=== PATIENT | female | born 1965 | race Caucasian/White ===

== ENCOUNTER 2019-10-05 11:00 | Outpatient (CLI) | payer OTHER ==
--- NOTE | 2019-10-05 11:43 | BD ---
EXAM: DEXA bone density examination HISTORY: 54-year-old female for screening COMPARISON: None FINDINGS: L1--bone mineral density 1.053 g/sq cm; T score 0.6 L2--bone mineral density 1.091 g/sq cm; T score 0.6 L3--bone mineral density 1.026 g/sq cm; T score -0.5 L4--bone mineral density 0.975 g/sq cm; T score -0.8 Total L1-L4--bone mineral density 1.030 g/sq cm; T score -0.2 Left femoral neck--bone mineral density0.701; T score -1.3 Total proximal left femur--bone mineral density 0.874; T score -0.6 WHO classification: Osteopenia 10 year fracture risk Major osteoporotic fracture: 7.4% Hip fracture: 0.8% IMPRESSION: Osteopenia with fracture risk as above.
--- NOTE | 2019-10-05 11:55 | RAD ---
TWO VIEWS CHEST: DATE: 10/05/2019. PROVIDED CLINICAL HISTORY: Rheumatoid arthritis. FINDINGS: No comparisons. Cardiac and mediastinal silhouette is within normal limits. Vascular calcification is noted involvin g the aortic arch. No focal consolidation, pleural fluid, or pneumothorax apparent. IMPRESSION: No evidence for an acute cardiopulmonary process. POS: [facility]
== END 2019-10-05 11:01 | disposition home or self-care (01) ==
LOC: BICMAMMO 11:00
PROVIDERS: ATTEND Internal Medicine Rheumatology
DX: M81.0 Age-related osteoporosis without current pathological fracture (principal); M05.79 Rheumatoid arthritis with rheumatoid factor of multiple sites without organ or systems involvement; M85.852 Other specified disorders of bone density and structure, left thigh
CPT/HCPCS: 71046; 77080

== ENCOUNTER 2020-06-12 14:00 | Inpatient (IN) | payer OTHER | END 2020-06-24 07:00 | disposition home or self-care (01) | DRG 470 | LOC: SJJU 06-24 07:00 | PROVIDERS: ADMIT Orthopaedic Surgery; ATTEND Orthopaedic Surgery | PROC: 0SRC0J9 Replacement of Right Knee Joint with Synthetic Substitute, Cemented, Open Approach (ICD-10-PCS; principal; 2020-06-24) | PROC: 8E0YXBZ Computer Assisted Procedure of Lower Extremity (ICD-10-PCS; 2020-06-24) | DX: M17.11 Unilateral primary osteoarthritis, right knee (principal); Z20.822 Contact with and (suspected) exposure to COVID-19; I10 Essential (primary) hypertension; F10.10 Alcohol abuse, uncomplicated; F32.9 Major depressive disorder, single episode, unspecified; G89.29 Other chronic pain; F17.210 Nicotine dependence, cigarettes, uncomplicated; Z79.899 Other long term (current) drug therapy ==

== ENCOUNTER 2020-06-19 14:39 | Outpatient (CLI) | payer OTHER ==
[2020-06-19 16:14] LABS: Bilirubin Neg (Negative); Blood, Urine Negative (Negative); Clarity Slightly Cloudy (Clear); Glucose, Urine (Dipstick) Normal (Negative); Ketone, Urine Negative (Negative); Leukocyte 25 (Negative); Nitrite Negative (Negative); Protein, Urine (Dipstick) Negative (Neg-Trace); Specific Gravity, Urine 1.015 (1.002-1.036); Urobilinogen Normal mg/dL (Less than 2)
[2020-06-19 16:32] LABS: INR-International Normal Ratio 0.9
[2020-06-19 16:35] LABS: Anion Gap 15 mmol/L (10-20); BUN (Urea Nitrogen) 21 mg/dL (9.8-20.1); Chloride 103 mmol/L (98-107); Potassium 4.2 mmol/L (3.5-5.1); Sodium 140 mmol/L (136-145)
[2020-06-19 16:47] LABS: #Eosinphils 0.1 10x3/uL (0.0-0.5); #Monocytes 0.4 10x3/uL (0.0-1.1); #Neutrophils 5.2 10x3/uL (1.5-8.4); %Basophils 0.4 % (0.0-2.0); %Eosinophils 0.8 % (0.0-6.0); %Lymphocytes 21.1 % (18.0-47.0); %Neutrophils 72.3 % (40.0-75.0); Hemoglobin 13.4 g/dL (12.0-15.5); Mean Corpuscular HGB CONC 32.8 g/dL (32.0-36.0); Mean Corpuscular Hemoglobin 28.7 pg (27.0-33.0); Mean Corpuscular Volume 87.6 fl (81.6-98.3); Mean Platelet Volume 10.5 fl (7.4-10.4); Platelet Count 356 10x3/uL (150-450); RBC Distribution Width 14.4 % (11.5-14.5); Red Blood Cell (RBC) Count 4.67 10x6/uL (3.90-5.03); White Blood Cell (WBC) Count 7.1 10x3/uL (3.5-10.5)
[2020-06-19 17:27] LABS: Calc. Creatinine Clearance 0 mL/min (70-130); Calcium 9.3 mg/dL (7.8-10.44); Carbon Dioxide 26 mmol/L (22-29); Glucose 98 mg/dL (70-105)
[2020-06-19 18:31] LABS: RBC/HPF 0-3 HPF (0-3)
[2020-06-19 18:32] LABS: Bacteria/HPF 3+ HPF (None Seen)
[2020-06-19 18:34] LABS: Transitional Epithelial 0-3 HPF (None Seen)
[2020-06-20 01:16] LABS: SARS-CoV-2 PCR by NAA Not Detected (NotDetected)
== END 2020-06-19 14:40 | disposition home or self-care (01) ==
LOC: LABBT 14:39
PROVIDERS: ATTEND Orthopaedic Surgery
DX: Z01.818 Encounter for other preprocedural examination (principal); Z20.822 Contact with and (suspected) exposure to COVID-19; M17.11 Unilateral primary osteoarthritis, right knee
CPT/HCPCS: 80048; 81001; 85025; 85610; 87081; 87635; 93005; 93010; U0003; U0005

== ENCOUNTER 2020-06-26 10:00 | Inpatient (IN) | payer OTHER ==
[2020-07-01] MEDS ORDERED: Sodium Chloride 0.9% 100 ML ONE (09:21)
[2020-07-01] MEDS ORDERED: Tranexamic Acid 1,000 MG/10 ML VIAL ONE (09:21)
[2020-07-01] MEDS ORDERED: Vancomycin HCl 1.5 GM in Sodium Chloride 0.9% 250 ML 300 ML IVPB SCH (09:30)
[2020-07-01] MEDS ORDERED: Famotidine/PF 20 mg/2ml Vial ONE (09:43)
[2020-07-01] MEDS ORDERED: Midazolam HCl 2 mg/2 ml Vial ONE (09:43)
[2020-07-01] MEDS ORDERED: Fentanyl 100 MCG/2 ML VIAL ONE ×6 (09:43→13:01)
[2020-07-01] MEDS ORDERED: Ketorolac Tromethamine 30 MG/ML VIAL ONE (10:40)
[2020-07-01] MEDS ORDERED: Ondansetron PF 4 MG/2 ML Vial ONE (10:40)
[2020-07-01] MEDS ORDERED: PROPOFOL 200 MG/20 ML VIAL ONE (10:40)
[2020-07-01] MEDS ORDERED: Ropivacaine 2% HCl/PF (20 MG/10 ML VIAL) ONE (10:40)
[2020-07-01] MEDS ORDERED: Lidocaine 1% PF 5 ML VIAL ONE (10:40)
[2020-07-01] MEDS ORDERED: Ropivacaine 0.5% HCl/PF (150 MG/30 ML VIAL) ONE (10:40)
[2020-07-01] MEDS ORDERED: Dexamethasone 20 MG/5 ML VIAL ONE (10:40)
[2020-07-01] MEDS ORDERED: HYDROcodone/Acetaminophen 10/325 mg Tablet PO PRN ×3 (10:51→12:15)
[2020-07-01] MEDS ORDERED: Zolpidem Tartrate 5 MG TAB PO PRN ×2 (10:51→12:15)
[2020-07-01] MEDS ORDERED: Ondansetron PF 4 MG/2 ML Vial IVP PRN ×2 (10:51→12:15)
[2020-07-01] MEDS ORDERED: diphenhydrAMINE 25 MG CAP PO PRN (10:51)
[2020-07-01] MEDS ORDERED: Acetaminophen 325 MG TAB PO PRN (10:51)
[2020-07-01] MEDS ORDERED: Promethazine HCl 25 MG/ML VIAL IM PRN ×3 (10:51→12:15)
[2020-07-01] MEDS ORDERED: Meperidine HCl/PF 25 MG/ML VIAL SLOW IVP PRN (11:56)
[2020-07-01] MEDS ORDERED: HYDROmorphone 2 MG/ML VIAL SLOW IVP PRN (11:56)
[2020-07-01] MEDS ORDERED: Promethazine HCl 25 MG/ML VIAL SLOW IVP PRN (11:56)
[2020-07-01] MEDS ORDERED: traMADol HCl 50 MG TAB PO PRN (12:15)
[2020-07-01] MEDS ORDERED: Ropivacaine HCl/PF 250 ML in Premix Bag 1 BAG NERVE BLCK SCH (12:15)
[2020-07-01] MEDS ORDERED: hydrALAZINE 20 MG/ML VIAL ONE (13:01)
[2020-07-01] MEDS ORDERED: Ketorolac Tromethamine 30 MG/ML VIAL IVP SCH (14:00)
[2020-07-01] MEDS: Fentanyl 100 MCG/2 ML VIAL IV PRN ×2 (14:27→18:47)
[2020-07-01] MEDS: Sodium Chloride 0.9% 1,000 ML IV SCH ×2 (14:42→21:10)
[2020-07-01] MEDS: HYDROcodone/Acetaminophen 10/325 mg Tablet PO PRN ×2 (15:49→21:07)
[2020-07-01 15:51] VITALS: BMI 41.5
[2020-07-01] MEDS ORDERED: Amlodipine 5 MG TAB PO SCH (18:00)
[2020-07-01] MEDS: CEFAZOLIN 2 GM in Premix Bag 1 BAG IVPB SCH (18:43)
[2020-07-01] MEDS: Aspirin 81 mg Enteric Coated Tablet PO SCH (21:08)
[2020-07-01] MEDS: Senokot S 8.6-50 MG TAB PO SCH (21:08)
[2020-07-01] MEDS: Ferrous Gluconate 324 MG TAB PO SCH (21:08)
[2020-07-02] MEDS: CEFAZOLIN 2 GM in Premix Bag 1 BAG IVPB SCH (02:20)
[2020-07-02] MEDS: Sodium Chloride 0.9% 1,000 ML IV SCH ×2 (02:23→17:59)
[2020-07-02] MEDS: HYDROcodone/Acetaminophen 10/325 mg Tablet PO PRN ×5 (02:23→22:18)
[2020-07-02 06:23] LABS: Hemoglobin 11.6 g/dL (12.0-16.0); Mean Corpuscular HGB CONC 33.8 g/dL (32.0-36.0); Mean Corpuscular Hemoglobin 30.2 pg (27.0-31.0); Mean Corpuscular Volume 89.2 fL (78.0-98.0); Mean Platelet Volume 8.1 fL (7.4-10.4); Platelet Count 321 thou/uL (130-400); Red Blood Cell (RBC) Count 3.85 mill/uL (4.20-5.40); White Blood Cell (WBC) Count 12.9 thou/uL (4.8-10.8)
[2020-07-02] MEDS: Aspirin 81 mg Enteric Coated Tablet PO SCH ×2 (08:27→20:35)
[2020-07-02] MEDS: Hydrochlorothiazide 25 MG TAB PO SCH (08:28)
[2020-07-02] MEDS: Ferrous Gluconate 324 MG TAB PO SCH ×2 (08:28→20:35)
[2020-07-02] MEDS: predniSONE 5 MG TAB PO SCH (08:28)
[2020-07-02] MEDS: Amlodipine 5 MG TAB PO SCH (08:28)
[2020-07-02] MEDS: Multivitamin W/ Minerals 1 TAB PO SCH (08:28)
[2020-07-02] MEDS: Fentanyl 100 MCG/2 ML VIAL IV PRN ×2 (08:35→12:26)
[2020-07-02] MEDS ORDERED: Gabapentin 100 MG CAP PO PRN (09:00)
[2020-07-02] MEDS: Senokot S 8.6-50 MG TAB PO SCH ×2 (15:35→20:36)
[2020-07-02] MEDS: traMADol HCl 50 MG TAB PO PRN (20:33)
[2020-07-02] MEDS: Ketorolac Tromethamine 30 MG/ML VIAL IVP PRN (22:22)
[2020-07-03] MEDS: Sodium Chloride 0.9% 1,000 ML IV SCH ×2 (03:14→13:20)
[2020-07-03] MEDS: HYDROcodone/Acetaminophen 10/325 mg Tablet PO PRN ×3 (03:33→14:04)
[2020-07-03] MEDS: Ketorolac Tromethamine 30 MG/ML VIAL IVP PRN (06:08)
[2020-07-03] MEDS: traMADol HCl 50 MG TAB PO PRN (06:09)
[2020-07-03 08:11] VITALS: TEMP 98.1
[2020-07-03] MEDS: Ferrous Gluconate 324 MG TAB PO SCH (08:38)
[2020-07-03] MEDS: Senokot S 8.6-50 MG TAB PO SCH (08:39)
[2020-07-03] MEDS: predniSONE 5 MG TAB PO SCH (08:39)
[2020-07-03] MEDS: Amlodipine 5 MG TAB PO SCH (08:39)
[2020-07-03] MEDS: Aspirin 81 mg Enteric Coated Tablet PO SCH (08:39)
[2020-07-03] MEDS: Hydrochlorothiazide 25 MG TAB PO SCH (08:39)
[2020-07-03] MEDS: Multivitamin W/ Minerals 1 TAB PO SCH (08:40)
[2020-07-03 12:02] VITALS: BP 126/77
== END 2020-07-03 14:30 | disposition home or self-care (01) | DRG 470 ==
LOC: SURG A 07-01 08:53 → EDSTATUS 07-01 10:00 → SURG A 07-01 13:40
PROVIDERS: ADMIT Orthopaedic Surgery; ATTEND Orthopaedic Surgery
PROC: 0SRC0J9 Replacement of Right Knee Joint with Synthetic Substitute, Cemented, Open Approach (ICD-10-PCS; principal; 2020-07-01)
DX: M17.11 Unilateral primary osteoarthritis, right knee (principal); M06.9 Rheumatoid arthritis, unspecified; I10 Essential (primary) hypertension; F32.9 Major depressive disorder, single episode, unspecified; G89.29 Other chronic pain; F10.11 Alcohol abuse, in remission; F14.11 Cocaine abuse, in remission; F17.210 Nicotine dependence, cigarettes, uncomplicated; Z20.822 Contact with and (suspected) exposure to COVID-19
CPT/HCPCS: 36415; 85027; C1713; C1776; J0360; J0690; J1100; J1885; J2250; J2405; J2704; J2795; J3010; J3490; J7512; S0028

== ENCOUNTER 2020-06-26 10:37 | Outpatient (CLI) | payer OTHER ==
[2020-06-26 20:37] LABS: SARS-CoV-2 PCR by NAA Not Detected (NotDetected)
== END 2020-06-26 10:38 | disposition home or self-care (01) ==
LOC: LABBT 10:37
PROVIDERS: ATTEND Orthopaedic Surgery
DX: Z01.812 Encounter for preprocedural laboratory examination (principal); M17.11 Unilateral primary osteoarthritis, right knee; Z20.822 Contact with and (suspected) exposure to COVID-19
CPT/HCPCS: 87635; U0003; U0005